=== PATIENT | female | born 1930 | race Hispanic/Latino ===

== ENCOUNTER 2018-07-08 06:32 | Day surgery (SDC) | payer OTHER ==
[~2018-07-08] VITALS: Ht 154.9 cm; Wt 99.8 kg
[~2018-07-08 06:32] MED LIST: ACET-2743 PO; CALC500T13 PO; CHOL5POW MC; FURO20TA4 PO; GLIMEPERIDE PO; LEVO25TA54 PO; MV-M1TAB20 PO; POTA25TA13 PO; SODIUM CHLORIDE 0.9% 1000ML 1,000 ML IV ONE
[2018-07-08 07:44] VITALS: BP 167/74
[2018-07-08] MEDS ORDERED: ESMOLOL HCL 10 MG/ML 10 ML VIAL ONE (08:52)
== END 2018-07-08 08:45 | disposition short-term general hospital (02) ==
LOC: DAH 06:32 → ENDO 06:32
PROVIDERS: ATTEND Internal Medicine Gastroenterology
DX: R13.10 Dysphagia, unspecified (principal); Z53.9 Procedure and treatment not carried out, unspecified reason; E03.9 Hypothyroidism, unspecified; Z88.0 Allergy status to penicillin; Z88.8 Allergy status to other drugs, medicaments and biological substances; E78.00 Pure hypercholesterolemia, unspecified; I11.0 Hypertensive heart disease with heart failure; I50.9 Heart failure, unspecified; J43.9 Emphysema, unspecified; Z86.010 Personal history of colon polyps; M19.90 Unspecified osteoarthritis, unspecified site; M81.0 Age-related osteoporosis without current pathological fracture; Z68.41 Body mass index [BMI] 40.0-44.9, adult; Z90.710 Acquired absence of both cervix and uterus; Z90.49 Acquired absence of other specified parts of digestive tract; Z98.890 Other specified postprocedural states
CPT/HCPCS: 36415; 80053; 82550; 82948; 84484; 85025; 93005 ×2; 99285; A4606; J3490; J7030; J7040

== ENCOUNTER 2018-07-08 09:13 | Emergency (ER) | payer OTHER ==
[~2018-07-08 09:13] MED LIST changes: -SODIUM CHLORIDE 0.9% 1000ML 1,000 ML IV ONE
[2018-07-08] MEDS ORDERED: SODIUM CHLORIDE 0.9% 500ML 0 ML IV ONE (09:31)
[2018-07-08 09:46] LABS: BASOPHILS % (AUTO) 0.5 % (0.0-5.0); EOSINOPHILS % (AUTO) 1.7 % (0.0-8.0); HEMATOCRIT 39.9 % (36-48); LYMPHOCYTES % (AUTO) 21.7 % (21.0-51.0); MEAN CORPUSCULAR HEMOGLOBIN 32.6 pg (27.0-33.0); MEAN CORPUSCULAR HGB CONC 34.8 g/dL (32.0-36.0); MEAN CORPUSCULAR VOLUME 93.6 fL (79-99); MONOCYTES % (AUTO) 6.5 % (3.0-13.0); NEUTROPHILS % (AUTO) 69.6 % (40.0-77.0); PLATELET COUNT (AUTO) 115 K/uL (130-400); RED BLOOD CELL COUNT(AUTO) 4.27 MIL/uL (4.00-5.50); RED CELL DISTRIBUTION WIDTH 13.3 % (11.0-15.5); WHITE BLOOD COUNT (AUTO) 5.4 K/uL (4.8-10.8)
[2018-07-08 09:56] LABS: POTASSIUM 4.4 mmol/L (3.5-5.1)
[2018-07-08 10:01] LABS: ALBUMIN 3.2 g/dL (3.5-5.0); BILIRUBIN,TOTAL 0.6 mg/dL (0.2-1.0); TOTAL PROTEIN, SERUM 7.1 g/dL (6.0-8.3)
== END 2018-07-08 12:09 | disposition home or self-care (01) ==
LOC: EDH 09:13
DX: I47.1 Supraventricular tachycardia (principal); R00.2 Palpitations; Z88.1 Allergy status to other antibiotic agents; Z88.2 Allergy status to sulfonamides; Z88.0 Allergy status to penicillin
CPT/HCPCS: 36415; 80053; 82550; 84484; 85025; 93005; J7040